=== PATIENT | male | born 1960 | race American Indian/Alaskan Native ===

== ENCOUNTER 2018-05-18 03:08 | Observation (INO) | payer MEDICAID, OTHER ==
[2018-05-18 03:08] VITALS: BMI 29.1
[2018-05-18] MEDS ORDERED: Albuterol-Ipratrop 3 mg / 0.5 (3 ml) UD IH STA (03:21)
[2018-05-18] MEDS ORDERED: Nitroglycerin 2% Ointment Foilpak UD TOP STA (03:21)
--- NOTE | 2018-05-18 03:30 | ED PDOC ---
Arrival/HPI - General Chief Complaint: Chest Pain Time Seen by Provider: 05/18/18 03:11 Historian: Patient - History of Present Illness Narrative History of Present Illness (Text): 05/18/18 03:25 58 year old male, whose past medical history includes CAD with stents, hypertension, and hyperlipidemia, presents to the emergency department by EMS for evaluation of chest discomfort. Patient states it feels like chest pressure. Patient also informs of some associated shortness of breath. Patient states symptoms are similar to those from previous heart problems. Patient informs he is noncompliant with his medication because he can't afford them. Patient was administered aspirin and NTG spray by EMS prior to arrival, with relief. Patient is a smoker. Patient denies any fevers, chills, headache, dizziness, abdominal pain, nausea, vomiting, diarrhea, back pain, neck pain, or any other complaint. Time/Duration: Prior to Arrival Symptom Onset: Sudden Symptom Course: Improving Quality: Pressure Activities at Onset: Light Context: Home Past Medical History - Provider Review Nursing Documentation Reviewed: Yes - Infectious Disease Hx of Infectious Diseases: None - Tetanus Immunization Tetanus Immunization: Unknown - Cardiac Hx Cardiac Disorders: Yes - Musculoskeletal/Rheumatological Hx Falls: No - Psychiatric Hx Psychophysiologic Disorder: No (MARIJUANA EVERY WEEK,ETOH SOCIALLY) Hx Substance Use: No - Surgical History Hx Coronary Stent: Yes () - Suicidal Assessment Feels Threatened In Home Enviroment: No Family/Social History - Physician Review Nursing Documentation Reviewed: Yes Family/Social History: No Known Family HX Smoking Status: Current Some Days Smoker Hx Alcohol Use: No Hx Substance Use: No Allergies/Home Meds Allergies/Adverse Reactions: Allergies No Known Allergies Allergy (Verified 05/18/18 03:14) Home Medications: Home Meds Medication Instructions Recorded Confirmed Aspirin 325 mg PO DAILY 11/30/13 11/30/13 Atorvastatin [Lipitor] 40 mg PO DAILY 11/30/13 11/30/13 Clopidogrel [Plavix] 75 mg PO DAILY 11/30/13 11/30/13 Enalapril Maleate [Enalapril] 10 mg PO DAILY 11/30/13 11/30/13 Metoprolol Succinate 25 mg PO DAILY 11/30/13 11/30/13 Review of Systems - Physician Review All systems were reviewed & negative as marked: Yes - Review of Systems Constitutional: absent: Fevers, Night Sweats Respiratory: SOB Cardiovascular: Chest Pain Gastrointestinal: absent: Abdominal Pain, Diarrhea, Nausea, Vomiting Musculoskeletal: absent: Back Pain, Neck Pain Neurological: absent: Headache, Dizziness Physical Exam Vital Signs Reviewed: Yes Vital Signs Temp Pulse Resp BP Pulse Ox 05/18/18 03:14 99.6 F 71 18 141/99 H 90 L Temperature: Afebrile Blood Pressure: Hypertensive Pulse: Regular Respiratory Rate: Normal Appearance: Positive for: Well-Appearing, Non-Toxic, Comfortable Pain Distress: None Mental Status: Positive for: Alert and Oriented X 3 Finger Stick Blood Glucose: 84 - Systems Exam Head: Present: Atraumatic, Normocephalic Pupils: Present: PERRL Extroacular Muscles: Present: EOMI Conjunctiva: Present: Normal Mouth: Present: Moist Mucous Membranes Neck: Present: Normal Range of Motion Respiratory/Chest: Present: Good Air Exchange, Rhonchi. No: Respiratory Distress, Accessory Muscle Use Cardiovascular: Present: Regular Rate and Rhythm, Normal S1, S2. No: Murmurs Abdomen: No: Tenderness, Distention, Peritoneal Signs Back: Present: Normal Inspection Upper Extremity: Present: Normal Inspection. No: Cyanosis, Edema Lower Extremity: Present: Normal Inspection. No: Edema Neurological: Present: GCS=15, CN II-XII Intact, Speech Normal Skin: Present: Warm, Dry, Normal Color. No: Rashes Psychiatric: Present: Alert, Oriented x 3, Normal Insight, Normal Concentration Medical Decision Making ED Course and Treatment: 05/18/18 03:32 Impression: 58 year old male presents with chest pain. Plan: -- EKG -- Cardiac Iso, CMP -- CBC, Platelets -- Chest X-ray -- Duoneb -- NTG 2% -- Reassess and disposition Prior Visits: Notes and results from previous visits were reviewed. Progress Notes: EKG reviewed by me, shows: Normal sinus rhythm @ 74bpm Frequent PVCs, LVH, Nonspecific T wave changes 05/18/18 04:48 Case discussed with medical writer and house physician Dr Alston, who accepts to the hospitalist service. - RAD Interpretation Radiology Orders: 05/18/18 03:17 CHEST PORTABLE [RAD] Stat - Medication Orders Current Medication Orders: Discontinued Medications Albuterol/Ipratropium (Duoneb 3 Mg/0.5 Mg (3 Ml) Ud) 3 ml IH ONCE STA Stop: 05/18/18 03:22 Nitroglycerin (Nitro-Bid 2% Oint) 1 ea TOP ONCE STA Stop: 05/18/18 03:22 - Scribe Statement The provider has reviewed the documentation as recorded by the Leonardibbelinda Moody Provider Scribe Attestation: All medical record entries made by the Scribe were at my direction and personally dictated by me. I have reviewed the chart and agree that the record accurately reflects my personal performance of the history, physical exam, medical decision making, and the department course for this patient. I have also personally directed, reviewed, and agree with the discharge instructions and disposition. Disposition/Present on Arrival - Present on Arrival Any Indicators Present on Arrival: No History of DVT/PE: No History of Uncontrolled Diabetes: No Urinary Catheter: No History of Decub. Ulcer: No History Surgical Site Infection Following: None - Disposition Have Diagnosis and Disposition been Completed?: Yes Diagnosis: Chest pain, CHF (congestive heart failure) Disposition: HOSPITALIZED Disposition Time: 04:40 Patient Plan: Admission Patient Problems: Current Active Problems Problem Status Onset CHF (congestive heart failure) Acute Chest pain Acute Condition: STABLE
[2018-05-18 03:37] LABS: MEAN CORPUSCULAR HGB CONC 34.5 g/dl (31.0-37.0); MEAN PLATELET VOLUME 11.3 fl (7.0-11.0); RBC 4.51 10^6/uL (3.5-6.1); RED CELL DISTRIBUTION WIDTH 14.4 % (11.5-14.5); WHITE BLOOD COUNT 5.4 10^3/uL (4.5-11.0)
[2018-05-18 03:39] LABS: ALB/GLOB RATIO 1.1 (1.1-1.8); ALBUMIN 3.7 g/dL (3.0-4.8); ALT/SGPT 100 U/L (7-56); AST/SGOT 111 U/L (17-59); BLOOD UREA NITROGEN 19 mg/dL (7-21); CALCIUM 8.9 mg/dL (8.4-10.5); GFR NON-AFRICAN AMERICAN > 60; INR 1.12; PARTIAL THROMBOPLASTIN TIME 35.3 Seconds (26.9-38.3); PROTHROMBIN TIME 12.4 SECONDS (9.4-12.5)
[2018-05-18 04:08] LABS: TROPONIN I 0.02 ng/mL
[2018-05-18 05:23] VITALS: O2SAT 97
--- NOTE | 2018-05-18 05:37 | CP.PCM.HP ---
<Baljeet Colindrese - Last Filed: 05/18/18 06:47> History of Present Illness - History of Present Illness History of Present Illness: Dr Colindres Hospitalist Service 58 M with pmhx of HTN HLD CAD (4 stents), presents to the ED with a 5hr hx of non-radiating chest pain and shortness of breath. Pt says at midnight he awoke from severe substernal chest pain and was unable to tolerate lying flat. His pain was relieved by sitting up and walking around. Pt called an ambulance because the pain did not go away. Pt says this pain feels similar in nature to his last episode. Pt reports he has not been able to follow up with Dr Bhakta or get his prescribed medications for the past two years because of insurance issues. ROS Pos: Chest Pain, Shortness of Breath, Orthopnea, medication and follow up non-compliance, headache Neg: Pains radiating to back/shoulder/jaw/abd, fevers, chills, vision/hearing changes PMH: hypertension, dyslipidemia, CAD s/p 4 stent placement in 04/2012 in [facility] Allergy: Nkda Meds: aspirin 325 mg, plavix 75 mg, enalalpril 5 mg, metoprolol 25 mg and lipitor 40 mg daily Hospitalization: 2013 r/o [facility] Family History: Mother at age 59 due to heart attack. Social History: smokes 3-4 cig/day, former cocaine user, drinks alcohol socially, marijuana occasionally. Lives with his girlfriend. Present on Admission - Present on Admission Any Indicators Present on Admission: No Review of Systems - Constitutional Constitutional: Headache. absent: Chills, Fatigue, Fever, Weight Gain, Weight Loss - EENT Eyes: absent: Change in Vision Ears: absent: Dizziness Nose/Mouth/Throat: absent: Facial Pain, Neck Pain - Cardiovascular Cardiovascular: Chest Pain, Orthopnea. absent: Diaphoresis, Edema, Pain Radiating to Arm/Neck/Jaw, Palpitations, Pedal Edema, Syncope - Respiratory Respiratory: Chest Congestion. absent: Cough - Gastrointestinal Gastrointestinal: absent: Abdominal Pain, Nausea, Vomiting - Musculoskeletal Musculoskeletal: absent: Back Pain, Myalgias, Neck Pain, Numbness, Radiating Pain into Limb - Integumentary Integumentary: absent: Jaundice - Neurological Neurological: absent: Numbness, Headaches, Syncope, Weakness - Psychiatric Psychiatric: absent: Anxiety, Depression Past Patient History - Infectious Disease Hx of Infectious Diseases: None - Tetanus Immunizations Tetanus Immunization: Unknown - Past Social History Smoking Status: Current Some Days Smoker - CARDIAC Hx Cardiac Disorders: Yes - MUSCULOSKELETAL/RHEUMATOLOGICAL Hx Falls: No - PSYCHIATRIC Hx Psychophysiologic Disorder: No (MARIJUANA EVERY WEEK,ETOH SOCIALLY) Hx Substance Use: No - SURGICAL HISTORY Hx Coronary Stent: Yes (-2012) Meds Allergies/Adverse Reactions: Allergies Allergy/AdvReac Type Severity Reaction Status Date / Time No Known Allergies Allergy Verified 05/18/18 03:14 Physical Exam - Constitutional Appears: Non-toxic, No Acute Distress - Head Exam Head Exam: ATRAUMATIC, NORMAL INSPECTION - Eye Exam Eye Exam: EOMI, Normal appearance. absent: Scleral icterus Pupil Exam: NORMAL ACCOMODATION, PERRL - ENT Exam ENT Exam: Mucous Membranes Moist, Normal Exam - Neck Exam Neck exam: Negative for: Lymphadenopathy, Tenderness, Thyromegaly - Respiratory Exam Respiratory Exam: Chest Wall Tenderness (sternal borders, anterior costal junctions T3-7 bilaterally), Rales (bilateral lower garzon- mild). absent: Rhonchi, Wheezes - Cardiovascular Exam Cardiovascular Exam: RRR, +S1, +S2. absent: Diastolic murmur, Systolic Murmur - GI/Abdominal Exam GI & Abdominal Exam: Normal Bowel Sounds, Soft, Tenderness (mild epigastric tenderness reproduced with deep palpation) - Extremities Exam Extremities exam: Positive for: pedal pulses present. Negative for: pedal edema - Neurological Exam Neurological exam: Alert, CN II-XII Intact, Oriented x3 - Psychiatric Exam Psychiatric exam: Normal Affect, Normal Mood - Skin Skin Exam: Dry, Normal Color, Warm Results - Vital Signs Recent Vital Signs: Last Vital Signs Temp 99.6 F 05/18/18 03:14 Pulse 74 05/18/18 05:22 Resp 17 05/18/18 05:22 BP 142/89 05/18/18 05:22 Pulse Ox 97 05/18/18 05:22 - Labs Result Diagrams: 05/18/18 03:14 05/18/18 03:14 Labs: Laboratory Results - last 24 hr 05/18/18 05/18/18 05/18/18 03:14 03:14 03:14 WBC 5.4 RBC 4.51 Hgb 14.0 Hct 40.6 L MCV 90.0 MCH 31.0 MCHC 34.5 RDW 14.4 Plt Count 154 MPV 11.3 H PT 12.4 INR 1.12 APTT 35.3 Sodium 139 Potassium 4.4 Chloride 107 Carbon Dioxide 26 Anion Gap 11 BUN 19 Creatinine 0.8 Est GFR ( Amer) > 60 Est GFR (Non-Af Amer) > 60 Random Glucose 97 Calcium 8.9 Total Bilirubin 0.5 AST 111 H ALT 100 H Alkaline Phosphatase 112 Lactate Dehydrogenase 708 H Total Creatine Kinase 137 Troponin I 0.02 D NT-Pro-B Natriuret Pep Total Protein 7.0 Albumin 3.7 Globulin 3.3 Albumin/Globulin Ratio 1.1 05/18/18 03:14 WBC RBC Hgb Hct MCV MCH MCHC RDW Plt Count MPV PT INR APTT Sodium Potassium Chloride Carbon Dioxide Anion Gap BUN Creatinine Est GFR ( Amer) Est GFR (Non-Af Amer) Random Glucose Calcium Total Bilirubin AST ALT Alkaline Phosphatase Lactate Dehydrogenase Total Creatine Kinase Troponin I NT-Pro-B Natriuret Pep 2520 H Total Protein Albumin Globulin Albumin/Globulin Ratio Assessment & Plan - Assessment and Plan (Free Text) Assessment: 58M hx HTN HLD 4 stents, admitted for chest pain, orthopnea Plan: Chest Pain - Pt non compliant with meds, restarting past home regimen - give ASA 325mg daily - give Lipitor 40mg po daily - give Plavix 75mg daily - give Metoprolol po daily - give Lasix 20 IVP - nitro, duonebs, lasix 40 given in ED - Trops Neg x1 f/u @9am, 3pm - f/u Echo - Dr Moore, Cardio consulted HTN - continue with home Rx - monitor vitals - f/u Cardio Recs CAD - ASA, Plavix - f/u Dr Adhikari Recs Polysubstance Abuse - f/u UDS PPx - ASA 325 daily - SCDs <Shelley De León R - Last Filed: 05/18/18 16:59> Results - Vital Signs Recent Vital Signs: Last Vital Signs Temp 98.1 F 05/18/18 12:00 Pulse 69 05/18/18 14:40 Resp 18 05/18/18 12:00 BP 160/92 H 05/18/18 14:40 Pulse Ox 97 05/18/18 05:22 - Labs Result Diagrams: 05/18/18 03:14 05/18/18 03:14 Labs: Laboratory Results - last 24 hr 05/18/18 05/18/18 05/18/18 03:14 03:14 03:14 WBC 5.4 RBC 4.51 Hgb 14.0 Hct 40.6 L MCV 90.0 MCH 31.0 MCHC 34.5 RDW 14.4 Plt Count 154 MPV 11.3 H PT 12.4 INR 1.12 APTT 35.3 Sodium 139 Potassium 4.4 Chloride 107 Carbon Dioxide 26 Anion Gap 11 BUN 19 Creatinine 0.8 Est GFR ( Amer) > 60 Est GFR (Non-Af Amer) > 60 Random Glucose 97 Calcium 8.9 Total Bilirubin 0.5 AST 111 H ALT 100 H Alkaline Phosphatase 112 Lactate Dehydrogenase 708 H Total Creatine Kinase 137 Troponin I 0.02 D NT-Pro-B Natriuret Pep Total Protein 7.0 Albumin 3.7 Globulin 3.3 Albumin/Globulin Ratio 1.1 Hepatitis A IgM Ab Hep Bs Antigen Hep B Core IgM Ab Hepatitis C Antibody 05/18/18 05/18/18 05/18/18 03:14 08:45 08:45 WBC RBC Hgb Hct MCV MCH MCHC RDW Plt Count MPV PT INR APTT Sodium Potassium Chloride Carbon Dioxide Anion Gap BUN Creatinine Est GFR ( Amer) Est GFR (Non-Af Amer) Random Glucose Calcium Total Bilirubin AST ALT Alkaline Phosphatase Lactate Dehydrogenase Total Creatine Kinase Troponin I 0.03 D NT-Pro-B Natriuret Pep 2520 H Total Protein Albumin Globulin Albumin/Globulin Ratio Hepatitis A IgM Ab Negative Hep Bs Antigen Negative Hep B Core IgM Ab Negative Hepatitis C Antibody Negative 05/18/18 15:30 WBC RBC Hgb Hct MCV MCH MCHC RDW Plt Count MPV PT INR APTT Sodium Potassium Chloride Carbon Dioxide Anion Gap BUN Creatinine Est GFR ( Amer) Est GFR (Non-Af Amer) Random Glucose Calcium Total Bilirubin AST ALT Alkaline Phosphatase Lactate Dehydrogenase Total Creatine Kinase Troponin I 0.02 D NT-Pro-B Natriuret Pep Total Protein Albumin Globulin Albumin/Globulin Ratio Hepatitis A IgM Ab Hep Bs Antigen Hep B Core IgM Ab Hepatitis C Antibody Attending/Attestation - Attestation I have personally seen and examined this patient.: Yes I have fully participated in the care of the patient.: Yes I have reviewed all pertinent clinical information: Yes Notes (Text): Patient seen and examined by me with resident at approximately 8AM on 05/18/18. Case including HPI, physical exam, and assessment and plan discussed with resident. Agree with above with following additions/corrections. Patient is a 58-year-old male with past medical history significant for hypertension, hyperlipidemia, coronary artery disease status post stent pl acement, tobacco abuse, alcohol abuse, and medication noncompliance that presented to the emergency room with chest pain and shortness of breath. Patient states that the pain started approximately at 12 AM last night. He states it woke him up from his sleep. He states he was also feeling short of breath. He was unable to lie flat. He states when he sat up and walked around he felt a little better. However, the chest pain continued. He says the pain is in the center of his chest and does not radiate. Pain is constant and feels like a "pressure." Patient states that when he received nitroglycerin the pain seemed to improve. Patient states that he has had no difficulty sleeping on 2 pillows until last night. Patient states he also drinks alcohol and drinks a "tall can of beer" daily. Last drink was yesterday. Patient denies any history of withdrawal symptoms. Patient denies any palpitations. No fevers or chills. No nausea, vomiting, or abdominal pain. No dysuria. No headaches or dizziness. No diarrhea or constipation. Patient states that he has not taken any medications at home for approximately 2 years secondary to not having any health insurance. 12 point review of systems reviewed by me. Please see above HPI, all other systems negative. Physical exam: General: Awake and alert lying in bed in no acute distress. HEENT: Normocephalic, atraumatic. Extraocular muscles intact, pupils equal and reactive, no scleral icterus. Oropharynx is pink and moist. No pharyngeal erythema or exudate appreciated. Neck is supple. Hearing grossly intact. Ears and nose externally unremarkable. Cardiovascular: Normal rhythm. Normal S1 and S2. No murmurs, rubs, or gallops appreciated Pulmonary: Normal respiratory effort. No rhonchi, rales, or wheezing appreciated. Gastrointestinal: Soft, nondistended. Nontender. Positive bowel sounds all 4 quadrants. No guarding. Musculoskeletal: Moves all extremities. No calf tenderness. No edema appreciated. Positive anterior breast bone chest wall tenderness. Central nervous system: AAOx3. CN 2-12 grossly intact. 5/5 muscle strength all extremities. Dermatologic: Skin warm and dry. Assessment and plan: Patient is a 58-year-old male with past medical history significant for hypertension, hyperlipidemia, coronary artery disease status post stent placement, tobacco abuse, alcohol abuse, and medication noncompliance that presented to the emergency room with chest pain and shortness of breath. 1. Atypical chest pain. Pain reproducible. Troponin 0.02, then 0.03. BNP elevated at 2520. Pending lipid panel. Cardiology consulted. Follow up recommend ations. Continue ASA, Plavix, Metoprolol. Monitor on telemetry. 2. Acute systolic CHF. BNP elevated at 2520. 2D echo per fruit receiver showed left ventricle is normal size, mild left ventricular hypertrophy, systolic function is moderately impaired with an ejection fraction of 30-35%, significant multiple regional wall motion abnormalities noted consistent with coronary artery disease, trivial aortic regurgitation, mitral regurgitation is mild, IVC is dilated, no pericardial effusion, no thrombus or vegetation noted. 3. CAD s/p stents. Patient has been off his medications for 2 years. Placed on aspirin and Plavix. Placed on metoprolol and lisinopril. Cardiology consulted, follow-up recommendations. 4. Transaminits. Likely secondary to alcohol abuse. Follow up repeat labs in AM. Hepatitis panel negative. 5. Hypertension. Started on metoprolol, lisinopril, and Norvasc. 6. Hyperlipidemia. Lipitor held for now secondary to transaminitis. Follow up lipid panel. 7. Alcohol abuse. Patient counseled at length on cessation. Placed on thiamine, folic acid, and multivitamin. 8. Tobacco abuse. Patient counseled at length on cessation. 9. History of cocaine abuse. Pending UDS. Case discussed in detail with the patient regarding current diagnosis and treatment plan. All questions answered.
--- NOTE | 2018-05-18 08:01 | RAD ---
Date of service: 05/18/2018 HISTORY: chest pain COMPARISON: 11/30/2013 TECHNIQUE: 1 view obtained. FINDINGS: LUNGS: Peribronchial thickening consistent with bronchitis. No evidence of pneumonia PLEURA: No significant pleural effusion identified, no pneumothorax apparent. CARDIOVASCULAR: No aortic atherosclerotic calcification present. Normal cardiac size. No pulmonary vascular congestion. OSSEOUS STRUCTURES: No significant abnormalities. VISUALIZED UPPER ABDOMEN: Normal. OTHER FINDINGS: None. IMPRESSION: Peribronchial thickening consistent with bronchitis. No evidence of pneumonia
--- NOTE | 2018-05-18 08:26 | CARD ---
APPROVED REPORT Date of service: 05/18/2018 EXAM: Two-dimensional and M-mode echocardiogram with Doppler and color Doppler. INDICATION Chest Pain Congestive Heart Failure 2D DIMENSIONS Left Atrium (2D)3.8 (1.6-4.0cm)IVSd1.3 (0.7-1.1cm) LVDd5.4 (3.9-5.9cm)PWd1.0 (0.7-1.1cm) LVDs4.5 (2.5-4.0cm)FS (%) 16.6 % LVEF (%)34.6 (>50%) M-Mode DIMENSIONS Aortic Root3.00 (2.2-3.7cm)Aortic Cusp Exc.2.00 (1.5-2.0cm) Aortic Valve AoV Peak [id number]/Denys Peak GR.5mmHg Mitral Valve E/A ratio0.0 TDI E/Lateral E'0.0E/Medial E'0.0 Tricuspid Valve TR Peak [id number] [id number] Peak Gr.13mmHg [id number] LEFT VENTRICLE The left ventricle is normal size. There is mild left ventricular hypertrophy. ( asymmetric septal hypertrophy)/ The systolic function is moderately impaired.EF-30-35% Significant Multiple regional wall motion abnormalities noted, C/w CAD There is moderate in the apical anterior wall. There is moderate hypokinesis in the mid-inferolateral wall. Transmitral Doppler flow pattern is Grade II-pseudonormal filling dynamics. No left ventricle thrombus noted on this study. There is no ventricular septal defect visualized. There is no left ventricular aneurysm. There is no mass noted in the left ventricle. RIGHT VENTRICLE The right ventricle is normal size. There is normal right ventricular wall thickness. The right ventricular systolic function is normal. ATRIA The left atrium size is normal. The right atrium size is normal. The interatrial septum is intact with no evidence for an atrial septal defect. AORTIC VALVE The aortic valve is thickened but opens well. There is trivial aortic regurgitation. There is no aortic valvular stenosis. There is no aortic valvular vegetation. MITRAL VALVE The mitral valve is thickened but opens well. Mitral regurgitation is mild. There is no mitral valve stenosis. There is no evidence of mitral valve prolapse. TRICUSPID VALVE The tricuspid valve leaflets are thickened , but open well. There is mild tricuspid regurgitation.RVSP-23 mmof hg. There is no tricuspid valve stenosis. There is no tricuspid valve prolapse or vegetation. PULMONIC VALVE The pulmonary valve is normal in structure. Trivial PI There is no pulmonic valvular stenosis. GREAT VESSELS The aortic root is normal in size. The ascending aorta is normal in size. The pulmonary artery is normal. The IVC is dilated. PERICARDIAL EFFUSION There is no pleural effusion. There is no pericardial effusion. <Conclusion> The left ventricle is normal size. There is mild left ventricular hypertrophy. ( asymmetric septal hypertrophy)/ The systolic function is moderately impaired.EF-30-35% Significant Multiple regional wall motion abnormalities noted, C/w CAD There is trivial aortic regurgitation. Mitral regurgitation is mild. There is mild tricuspid regurgitation.RVSP-23 mmof hg. The IVC is dilated. There is no pericardial effusion. No thrombus or vegetation noted.
[2018-05-18] MEDS: Metoprolol Succinate 25 mg XL Tab PO SCH (10:00)
--- NOTE | 2018-05-18 12:29 | CARD ---
APPROVED REPORT Date of service: 05/18/2018 EKG Measurement Heart [id number] <Conclusion> Sinus rhythm with frequent premature ventricular complexes Possible Left atrial enlargement Left ventricular hypertrophy Nonspecific T wave abnormality Abnormal ECG
[2018-05-18 12:57] LABS: HEPATITIS B SURFACE AG Negative (NEGATIVE)
[2018-05-18 13:03] LABS: HEPATITIS A IGM NEGATIVE (NEGATIVE); HEPATITIS B CORE AB NEGATIVE (NEGATIVE)
[2018-05-18 13:14] LABS: HEPATITIS C ANTIBODY NEGATIVE (NEGATIVE)
[2018-05-18] MEDS: Multivitamin With Minerals Tab PO SCH (14:39)
[2018-05-18 19:07] LABS: BARBITURATES, UR NEGATIVE (NEGATIVE); BENZODIAZEPINES, UR NEGATIVE (NEGATIVE); OPIATES, UR POSITIVE (NEGATIVE); PHENCYCLIDINE, UR NEGATIVE (NEGATIVE)
--- NOTE | 2018-05-18 19:33 | CON ---
DATE: 05/18/2018 CARDIOLOGY CONSULT REASON FOR CONSULTATION: Chest pain. HISTORY OF PRESENT ILLNESS: The patient is a 58-year-old male who has a history of coronary artery disease, underwent 4 stents in 2012 at [facility] by custom leather products maker, Dr. Guerrero. The patient has not had any followup and does not take medications, because he lost his insurance. The patient presents because of retrosternal chest pain as well as shortness of breath. SOCIAL HISTORY: The patient is a smoker, drinker. 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 The patient denies any drug abuse. REVIEW OF SYSTEMS: No nausea or vomiting. No fever or chills. PHYSICAL EXAMINATION GENERAL: The patient is a middle-aged male who does not appear to be in acute distress. VITAL SIGNS: Blood pressure 152/93, heart rate 70, temperature 99.6, respirations 18. HEENT: Normocephalic. CHEST: Clear. HEART: S1 and S2 regular. EXTREMITIES: No edema. LABORATORY DATA: Today's SMA-7 is within normal limits. ProBNP is 2520. Troponins 0.02 and 0.03. PT, PTT, and INR are within normal limits. Hemoglobin and hematocrit 14 and 40.6. White count and platelet count are within normal limits. Chest x-ray was unremarkable except for prominent bronchovascular markings. EKG reveals sinus rhythm with frequent PVCs, normal specific Q-wave abnormality. Echocardiographic study was consistent with ischemic cardiomyopathy, ejection fraction in the range of 30% to 35%. ASSESSMENT 1. Chest pain with troponin in indeterminate range. 2. Ischemic cardiomyopathy. 3. History of cocaine abuse in the past. The patient tested positive for cocaine, opiate and cannabinoids in 2013. RECOMMENDATIONS: Continue aspirin 325 mg once daily, 620 mg once a day; Toprol-XL 25 mg once a day; Plavix 75 mg once a day; Lipitor 40 mg once a day; Zestril 20 mg once a day. Obtain urine for drug screen and social service to help the patient with his medication needs as well as outpatient followup. Cordell Adhikari MD [facility] # [id number]
[2018-05-19 03:43] VITALS: RESP 20
[2018-05-19] MEDS ORDERED: Metoprolol 1 mg/ml Inj IVP ONE (04:53)
[2018-05-19 06:23] LABS: BASO # 0.03 K/mm3 (0.0-2.0); BASO % 0.8 % (0.0-3.0); EOS # 0.1 (0.0-0.7); EOS % 2.3 % (1.5-5.0); LYMPH # 1.3 (1.2-3.4); LYMPH % 32.7 % (22.0-35.0); MEAN CELL VOLUME 88.7 fl (80.0-105.0); MEAN CORPUSCULAR HEMOGLOBIN 30.9 pg (25.0-35.0); MEAN CORPUSCULAR HGB CONC 34.8 g/dl (31.0-37.0); MEAN PLATELET VOLUME 11.8 fl (7.0-11.0); MONO # 0.5 (0.1-0.6); MONO % 12.7 % (1.0-6.0); RBC 5.38 10^6/uL (3.5-6.1); RED CELL DISTRIBUTION WIDTH 14.1 % (11.5-14.5)
[2018-05-19 06:35] LABS: HEMOGLOBIN 16.6 g/dL (14.0-18.0)
[2018-05-19 07:05] LABS: ALBUMIN 4.1 g/dL (3.0-4.8); ALT/SGPT 72 U/L (7-56); AST/SGOT 48 U/L (17-59); BLOOD UREA NITROGEN 14 mg/dL (7-21); CALCIUM 9.7 mg/dL (8.4-10.5); GFR NON-AFRICAN AMERICAN > 60; HDL CHOLESTEROL 50 mg/dL (29-60)
[2018-05-19 07:11] LABS: LDL CHOLESTEROL 127 mg/dL (0-129)
[2018-05-19] MEDS ORDERED: Potassium Chloride 20 mEq ER Tab PO ONE (08:04)
[2018-05-19] MEDS: Multivitamin With Minerals Tab PO SCH (08:47)
[2018-05-19] MEDS: Metoprolol Succinate 25 mg XL Tab PO SCH (09:17)
[2018-05-19] MEDS ORDERED: Potassium Chloride 20 mEq ER Tab PO SCH (11:15)
[2018-05-19 12:32] VITALS: BP 150/88; PULSE 68; TEMP 98.4
--- NOTE | 2018-05-19 14:59 | CP.PCM.DIS ---
<Ayleen Toussaint - Last Filed: 05/19/18 14:56> Provider - Provider Date of Admission: 05/18/18 04:41 Attending physician: Keli White MD Primary care physician: NO PRIMARY CARE PROVIDER Consults: 05/18/18 05:57 Cardiology Consult Routine Comment: Consulting Provider: Cordell Adhikari Consulting Physician: Cordell Adhikari Reason for Consult: Chest Pain, orthopnea, med non compliance 05/18/18 10:35 Phlebotomist Associate [Case Management Referral] Routine Comment: Physician Instructions: Reason For Exam: assist with meds Reason for Referral: Phlebotomist Associate Eval Time Spent in preparation of Discharge (in minutes): 35 Hospital Course - Lab Results Lab Results: Most Recent Lab Values WBC 4.0 10^3/uL (4.5-11.0) L D 05/19/18 05:30 RBC 5.38 10^6/uL (3.5-6.1) 05/19/18 05:30 Hgb 16.6 g/dL (14.0-18.0) D 05/19/18 05:30 Hct 47.7 % (42.0-52.0) 05/19/18 05:30 MCV 88.7 fl (80.0-105.0) 05/19/18 05:30 MCH 30.9 pg (25.0-35.0) 05/19/18 05:30 MCHC 34.8 g/dl (31.0-37.0) 05/19/18 05:30 RDW 14.1 % (11.5-14.5) 05/19/18 05:30 Plt Count 186 10^3/uL (120.0-450.0) 05/19/18 05:30 MPV 11.8 fl (7.0-11.0) H 05/19/18 05:30 Neut % (Auto) 51.5 % (50.0-68.0) 05/19/18 05:30 Lymph % (Auto) 32.7 % (22.0-35.0) 05/19/18 05:30 Gem % (Auto) 12.7 % (1.0-6.0) H 05/19/18 05:30 Eos % (Auto) 2.3 % (1.5-5.0) 05/19/18 05:30 Baso % (Auto) 0.8 % (0.0-3.0) 05/19/18 05:30 Lymph # (Auto) 1.3 (1.2-3.4) 05/19/18 05:30 Gem # (Auto) 0.5 (0.1-0.6) 05/19/18 05:30 Eos # (Auto) 0.1 (0.0-0.7) 05/19/18 05:30 Baso # (Auto) 0.03 K/mm3 (0.0-2.0) 05/19/18 05:30 Absolute Neuts (auto) 2.04 (1.4-6.5) 05/19/18 05:30 PT 12.4 SECONDS (9.4-12.5) 05/18/18 03:14 INR 1.12 05/18/18 03:14 APTT 35.3 Seconds (26.9-38.3) 05/18/18 03:14 Sodium 140 mmol/L (132-148) 05/19/18 05:30 Potassium 3.4 mmol/L (3.6-5.0) L 05/19/18 05:30 Chloride 104 mmol/L (98-107) 05/19/18 05:30 Carbon Dioxide 28 mmol/L (21-33) 05/19/18 05:30 Anion Gap 11 (10-20) 05/19/18 05:30 BUN 14 mg/dL (7-21) 05/19/18 05:30 Creatinine 0.7 mg/dl (0.8-1.5) L 05/19/18 05:30 Est GFR ( Amer) > 60 05/19/18 05:30 Est GFR (Non-Af Amer) > 60 05/19/18 05:30 Random Glucose 118 mg/dL (70-110) H 05/19/18 05:30 Calcium 9.7 mg/dL (8.4-10.5) 05/19/18 05:30 Phosphorus 3.4 mg/dL (2.5-4.5) 05/19/18 05:30 Magnesium 2.1 mg/dL (1.7-2.2) 05/19/18 05:30 Total Bilirubin 1.0 mg/dL (0.2-1.3) 05/19/18 05:30 AST 48 U/L (17-59) 05/19/18 05:30 ALT 72 U/L (7-56) H 05/19/18 05:30 Alkaline Phosphatase 118 U/L (38-126) 05/19/18 05:30 Lactate Dehydrogenase 708 U/L (333-699) H 05/18/18 03:14 Total Creatine Kinase 137 U/L (35-230) 05/18/18 03:14 Troponin I 0.02 ng/mL D 05/18/18 15:30 NT-Pro-B Natriuret Pep 2520 pg/mL (0-450) H 05/18/18 03:14 Total Protein 8.0 g/dL (5.8-8.3) 05/19/18 05:30 Albumin 4.1 g/dL (3.0-4.8) 05/19/18 05:30 Globulin 3.9 gm/dL 05/19/18 05:30 Albumin/Globulin Ratio 1.0 (1.1-1.8) L 05/19/18 05:30 Triglycerides 66 mg/dL (35-160) 05/19/18 05:30 Cholesterol 214 mg/dL (130-200) H 05/19/18 05:30 LDL Cholesterol Direct 127 mg/dL (0-129) 05/19/18 05:30 HDL Cholesterol 50 mg/dL (29-60) 05/19/18 05:30 Urine Opiates Screen Positive (NEGATIVE) H 05/18/18 18:40 Urine Methadone Screen Negative (NEGATIVE) 05/18/18 18:40 Ur Barbiturates Screen Negative (NEGATIVE) 05/18/18 18:40 Ur Phencyclidine Scrn Negative (NEGATIVE) 05/18/18 18:40 Ur Amphetamines Screen Negative (NEGATIVE) 05/18/18 18:40 U Benzodiazepines Scrn Negative (NEGATIVE) 05/18/18 18:40 U Oth Cocaine Metabols Negative (NEGATIVE) 05/18/18 18:40 U Cannabinoids Screen Positive (NEGATIVE) H 05/18/18 18:40 Hepatitis A IgM Ab Negative (NEGATIVE) 05/18/18 08:45 Hep Bs Antigen Negative (NEGATIVE) 05/18/18 08:45 Hep B Core IgM Ab Negative (NEGATIVE) 05/18/18 08:45 Hepatitis C Antibody Negative (NEGATIVE) 05/18/18 08:45 HIV 1&2 Ag/Ab, 4th Gen Nonreactive (Nonreactive) 05/18/18 08:45 Physical Exam - Constitutional Appears: Non-toxic, No Acute Distress - Head Exam Head Exam: ATRAUMATIC, NORMAL INSPECTION - Eye Exam Eye Exam: EOMI, Normal appearance. absent: Scleral icterus Pupil Exam: NORMAL ACCOMODATION, PERRL - ENT Exam ENT Exam: Mucous Membranes Moist, Normal Exam - Neck Exam Neck exam: Negative for: Lymphadenopathy, Tenderness, Thyromegaly - Respiratory Exam Respiratory Exam: Chest Wall Tenderness (sternal borders, anterior costal junctions T3-7 bilaterally), Rales (bilateral lower garzon- mild). absent: Rhonchi, Wheezes - Cardiovascular Exam Cardiovascular Exam: RRR, +S1, +S2. absent: Diastolic murmur, Systolic Murmur - GI/Abdominal Exam GI & Abdominal Exam: Normal Bowel Sounds, Soft, Tenderness (mild epigastric tenderness reproduced with deep palpation) - Extremities Exam Extremities exam: Positive for: pedal pulses present. Negative for: pedal edema - Neurological Exam Neurological exam: Alert, CN II-XII Intact, Oriented x3 - Psychiatric Exam Psychiatric exam: Normal Affect, Normal Mood - Skin Skin Exam: Dry, Normal Color, Warm - Hospital Course Hospital Course: Upon admission, 58 M with pmhx of HTN HLD CAD (4 stents), presents to the ED with a 5hr hx of non-radiating chest pain and shortness of breath. Pt says at midnight he awoke from severe substernal chest pain and was unable to tolerate lying flat. His pain was relieved by sitting up and walking around. Pt called an ambulance because the pain did not go away. Pt says this pain feels similar in nature to his last episode. Pt reports he has not been able to follow up with Dr Bhakta or get his prescribed medications for the past two years because of insurance issues. During hospital course, tropoinins were 0.02, 0.03, and 0.02 and EKG was unremarkable. UDS positive for cannabinoids and opiods. Echo showed EF of 3-35% with significant regional wall motion abnormalities and dilated IVC. Patient was started on his previous non compliant medications aspirin, plavix, toprol XL, norvasc, lasix, lisinopril and aldactone. Patient verbalized understanding of hospital course and discharge instructions including importance of follow up with clinic. All questions were answered to satisfaction and patient agreed with discharge today. Discharge Plan - Discharge Medications Prescriptions: amLODIPine [Norvasc] 5 mg PO DAILY #30 tab Aspirin [Aspirin Chewable] 325 mg PO DAILY #30 chew Atorvastatin [Lipitor] 40 mg PO DAILY #30 tab Clopidogrel [Plavix] 75 mg PO DAILY #30 tab Folic Acid 1 mg PO DAILY #30 tab Furosemide [Lasix] 40 mg PO DAILY #10 tablet Lisinopril [Zestril] 20 mg PO DAILY #30 tab Metoprolol Succinate XL [Toprol XL] 25 mg PO DAILY #30 tab Multimineral/Multivitamin [Therapeutic-M Tab] 1 tab PO 0800 #30 tab Spironolactone [Aldactone] 25 mg PO DAILY #10 tablet Thiamine [Vitamin B1 Tab] 100 mg PO DAILY #30 tab - Follow Up Plan Condition: STABLE Disposition: HOME/ ROUTINE Instructions: Heart Healthy Diet, Heart Failure (DC), Chest Pain (DC) Additional Instructions: Please establish primary care physician at [facility] through [facility]. You have an appointment with the clinic on May 28, 2018 at 2pm. Please complete [facility] paperwork before appointment next week and bring all of your discharge paperwork with you. You will need to follow up with [facility] in [place], [place] for cardiology evaluation and repeat echocardiography (heart ultrasound). Instructions will be given to you at the [facility]. As per our discussion, please continue cessation of any substance abuse. You have been provided the following medications: Norvasc 5mg daily Aspirin 325mg daily Lipitor 40mg daily Plavix 75mg daily Lasix 40mg daily Lisinopril 20mg daily Folic Acid 1mg daily Multivitamin daily Thiamine 100mg daily Toprol XL 25mg Aldactone 25mg daily Please get any refills needed for the above medications at [facility] with your primary care doctor. You have been given day 10 days of the Aldactone and Lasix as you will need blood work to check your electrolytes in order to continue those medications. Please return to the ED for any new or worsening symptoms. Referrals: [facility] [Outside] PCP,NO [Primary Care Provider] - <Shelley De León R - Last Filed: 05/20/18 07:38> Provider - Provider Date of Admission: 05/18/18 04:41 Attending physician: Keli White MD Primary care physician: NO PRIMARY CARE PROVIDER Consults: 05/18/18 05:57 Cardiology Consult Routine Comment: Consulting Provider: Cordell Adhikari Consulting Physician: Cordell Adhikari Reason for Consult: Chest Pain, orthopnea, med non compliance 05/18/18 10:35 Phlebotomist Associate [Case Management Referral] Routine Comment: Physician Instructions: Reason For Exam: assist with meds Reason for Referral: Phlebotomist Associate [facility] Course - Lab Results Lab Results: Most Recent Lab Values WBC 4.0 10^3/uL (4.5-11.0) L D 05/19/18 05:30 RBC 5.38 10^6/uL (3.5-6.1) 05/19/18 05:30 Hgb 16.6 g/dL (14.0-18.0) D 05/19/18 05:30 Hct 47.7 % (42.0-52.0) 05/19/18 05:30 MCV 88.7 fl (80.0-105.0) 05/19/18 05:30 MCH 30.9 pg (25.0-35.0) 05/19/18 05:30 MCHC 34.8 g/dl (31.0-37.0) 05/19/18 05:30 RDW 14.1 % (11.5-14.5) 05/19/18 05:30 Plt Count 186 10^3/uL (120.0-450.0) 05/19/18 05:30 MPV 11.8 fl (7.0-11.0) H 05/19/18 05:30 Neut % (Auto) 51.5 % (50.0-68.0) 05/19/18 05:30 Lymph % (Auto) 32.7 % (22.0-35.0) 05/19/18 05:30 Gem % (Auto) 12.7 % (1.0-6.0) H 05/19/18 05:30 Eos % (Auto) 2.3 % (1.5-5.0) 05/19/18 05:30 Baso % (Auto) 0.8 % (0.0-3.0) 05/19/18 05:30 Lymph # (Auto) 1.3 (1.2-3.4) 05/19/18 05:30 Gem # (Auto) 0.5 (0.1-0.6) 05/19/18 05:30 Eos # (Auto) 0.1 (0.0-0.7) 05/19/18 05:30 Baso # (Auto) 0.03 K/mm3 (0.0-2.0) 05/19/18 05:30 Absolute Neuts (auto) 2.04 (1.4-6.5) 05/19/18 05:30 PT 12.4 SECONDS (9.4-12.5) 05/18/18 03:14 INR 1.12 05/18/18 03:14 APTT 35.3 Seconds (26.9-38.3) 05/18/18 03:14 Sodium 140 mmol/L (132-148) 05/19/18 05:30 Potassium 3.4 mmol/L (3.6-5.0) L 05/19/18 05:30 Chloride 104 mmol/L (98-107) 05/19/18 05:30 Carbon Dioxide 28 mmol/L (21-33) 05/19/18 05:30 Anion Gap 11 (10-20) 05/19/18 05:30 BUN 14 mg/dL (7-21) 05/19/18 05:30 Creatinine 0.7 mg/dl (0.8-1.5) L 05/19/18 05:30 Est GFR ( Amer) > 60 05/19/18 05:30 Est GFR (Non-Af Amer) > 60 05/19/18 05:30 Random Glucose 118 mg/dL (70-110) H 05/19/18 05:30 Calcium 9.7 mg/dL (8.4-10.5) 05/19/18 05:30 Phosphorus 3.4 mg/dL (2.5-4.5) 05/19/18 05:30 Magnesium 2.1 mg/dL (1.7-2.2) 05/19/18 05:30 Total Bilirubin 1.0 mg/dL (0.2-1.3) 05/19/18 05:30 AST 48 U/L (17-59) 05/19/18 05:30 ALT 72 U/L (7-56) H 05/19/18 05:30 Alkaline Phosphatase 118 U/L (38-126) 05/19/18 05:30 Lactate Dehydrogenase 708 U/L (333-699) H 05/18/18 03:14 Total Creatine Kinase 137 U/L (35-230) 05/18/18 03:14 Troponin I 0.02 ng/mL D 05/18/18 15:30 NT-Pro-B Natriuret Pep 2520 pg/mL (0-450) H 05/18/18 03:14 Total Protein 8.0 g/dL (5.8-8.3) 05/19/18 05:30 Albumin 4.1 g/dL (3.0-4.8) 05/19/18 05:30 Globulin 3.9 gm/dL 05/19/18 05:30 Albumin/Globulin Ratio 1.0 (1.1-1.8) L 05/19/18 05:30 Triglycerides 66 mg/dL (35-160) 05/19/18 05:30 Cholesterol 214 mg/dL (130-200) H 05/19/18 05:30 LDL Cholesterol Direct 127 mg/dL (0-129) 05/19/18 05:30 HDL Cholesterol 50 mg/dL (29-60) 05/19/18 05:30 Urine Opiates Screen Positive (NEGATIVE) H 05/18/18 18:40 Urine Methadone Screen Negative (NEGATIVE) 05/18/18 18:40 Ur Barbiturates Screen Negative (NEGATIVE) 05/18/18 18:40 Ur Phencyclidine Scrn Negative (NEGATIVE) 05/18/18 18:40 Ur Amphetamines Screen Negative (NEGATIVE) 05/18/18 18:40 U Benzodiazepines Scrn Negative (NEGATIVE) 05/18/18 18:40 U Oth Cocaine Metabols Negative (NEGATIVE) 05/18/18 18:40 U Cannabinoids Screen Positive (NEGATIVE) H 05/18/18 18:40 Hepatitis A IgM Ab Negative (NEGATIVE) 05/18/18 08:45 Hep Bs Antigen Negative (NEGATIVE) 05/18/18 08:45 Hep B Core IgM Ab Negative (NEGATIVE) 05/18/18 08:45 Hepatitis C Antibody Negative (NEGATIVE) 05/18/18 08:45 HIV 1&2 Ag/Ab, 4th Gen Nonreactive (Nonreactive) 05/18/18 08:45 Attending/Attestation - Attestation I have personally seen and examined this patient.: Yes I have fully participated in the care of the patient.: Yes I have reviewed all pertinent clinical information, including history, physical exam and plan: Yes Notes (Text): Please note this DC summary is for 05/19/18 Patient seen and examined by me with resident at approximately 9:40AM and prior to discharge on 05/19/18. Case including discharge plan discussed with resident. Agree with above with following additions/corrections. Patient is a 58-year-old male with past medical history significant for hypertension, hyperlipidemia, coronary artery disease status post stent placement, tobacco abuse, alcohol abuse, and medication noncompliance that presented to the emergency room with chest pain and shortness of breath. Please see H&P for full details. Patient was found to have atypical chest pain, acute systolic CHF, coronary artery disease status post stents, transaminitis, hypertension, hyperlipidemia, alcohol abuse, tobacco abuse, and history of cocaine and marijuana abuse. Chest pain was reproducible. Cardiology was consulted and following. Patient has been noncompliant with medications at home for over 2 years. Patient states he has not taken medications for over 2 years. Patient was placed on aspirin and Plavix and metoprolol. Troponins were 0.02, 0.03, then 0.02. 2D echo per recreational therapist showed left ventricle is normal size, mild left ventricular hypertrophy, systolic function is moderately impaired with an ejection fraction of 30-35%, significant multiple regional wall motion abnormalities noted consistent with coronary artery disease, trivial aortic regurgitation, mitral regurgitation is mild, IVC is dilated, no pericardial effusion, no thrombus or vegetation noted. BNP was elevated at 2520. Patient was placed on IV Lasix. Patient was also found to have uncontrolled hypertension. Patient was started on metoprolol, lisinopril, and Norvasc with improvement. Patient was found to have transaminitis which improved and was likely secondary to alcohol abuse. Hepatitis panel was negative. Patient was also restarted on Lipitor after improvement in transaminitis. Patient was counseled at length on cessation of alcohol abuse. Patient was started on thiamine, folic acid, and multivitamin. Continue tobacco cessation. UDS was positive for opiates and cannabinoids. Patient denied doing any drugs. Patient was advised that his UDS was positive. She was also counseled at length on polysubstance abuse cessation. Patient was also counseled at length on compliance with medications and follow-up with the physician. An appointment was made for patient to establish care with a primary care doctor. Per cardiology, patient will need to have access and be compliant with cardiac medications and will require further outpatient cardiac workup once patient is compliant and is taking his medications. Patient's symptoms resolved. Patient was cleared for discharge by cardiology. Patient was discharged home. On day of discharge, patient stated he was feeling much better. Shortness of breath and chest pain resolved. Patient denied any palpitations. No fevers or chills. No dysuria. No nausea, vomiting, or abdominal pain. No headaches or dizziness. No dysuria. No diarrhea or constipation. Physical exam: General: Awake and alert, lying in bed in no acute distress. HEENT: Normocephalic, atraumatic, Extraocular muscles intact, pupils equal and reactive, no scleral icterus. Oropharynx is pink and moist. Neck is supple. Cardiovascular: Normal rhythm. Normal S1 and S2. No murmurs, rubs, or gallops appreciated. Pulmonary: Normal respiratory effort. No rhonchi, rales, or wheezing appreciated. Gastrointestinal: Soft. Nontender. Nondistended. Positive bowel sounds all 4 quadrants. No guarding. Musculoskeletal: Moves all extremities. No calf tenderness. No edema appreciated. Central nervous system: AAO x 3, CN 2-12 grossly intact. Dermatologic: Skin warm and dry. Please see chart for full details. Follow up instructions: Patient to follow-up at [facility] on 05/28/18 at 2PM. Patient will need outpatient follow-up with cardiology. Patient given prescriptions for all medications and medications delivered to bedside prior to discharge. Patient counseled at length on cessation of any substance abuse. All instructions explained to the patient in detail. Patient both understands and agrees to all instructions. Written instructions also given. Time spent in discharging the patient including chart review, medication reconciliation, discussion with the patient, director global medical affairs, consultants, and nursing staff was approximately 45 minutes.
--- NOTE | 2018-05-19 22:51 | PN ---
DATE: 05/19/2018 SUBJECTIVE: The patient denies any chest pain, except for one time when they wanted to take his weight. No shortness of breath. PHYSICAL EXAMINATION: VITAL SIGNS: Blood pressure 156/84, heart rate 61, temperature 98, and respirations 20. HEENT: Normocephalic. CHEST: Minimal rhonchi. HEART: S1 and S2, regular. EXTREMITIES: No edema. LABORATORY DATA: Urine drug screen is positive for opiates and cannabinoids. Today SMA-7 is within normal limits except for a glucose of 118, potassium 3.4, and creatinine 0.7. ASSESSMENT: 1. Ischemic cardiomyopathy. 2. Opiate and cannabinoid abuse with history of past cocaine abuse. 3. Mild hypokalemia. RECOMMENDATIONS: The case was discussed at length with the patient and with the primary physician, Dr. De León. When cardiac cath and intervention was offered to the patient, the patient stated that he has no way of getting his outpatient medications including dual antiplatelet therapy. The patient was evaluated by Social Service as per my request yesterday, but there is no clear confirmation that he will obtain his free medications. The patient can be maintained on Medical Service for coronary artery disease and cardiomyopathy and be followed in the clinic until his medication requirements are met. The patient will be followed up in the clinic on medical therapy, and at any time the patient is ready for cardiac catheterization, the team can contact me to perform an outpatient cardiac catheterization. In the meantime, the patient was strongly advised to call 911 or present to the emergency room for any recurrence of his chest pain or worsening of his shortness of breath. In the meantime, the patient will be maintained on Lasix, Lipitor, Norvasc, Plavix, Toprol-XL, Vistaril, and K-Dur 20 mEq will be added today. Cordell Adhikari MD
== END 2018-05-19 16:27 | disposition home or self-care (01) ==
LOC: ED 03:08 → INTOOBSV 04:41 → ERH 04:41 → 2RNO 05:46
PROVIDERS: ADMIT Internal Medicine; ATTEND Internal Medicine
DX: I11.0 Hypertensive heart disease with heart failure (principal); I50.21 Acute systolic (congestive) heart failure; I25.5 Ischemic cardiomyopathy; I25.10 Atherosclerotic heart disease of native coronary artery without angina pectoris; E87.6 Hypokalemia; F12.10 Cannabis abuse, uncomplicated; F11.10 Opioid abuse, uncomplicated; F10.10 Alcohol abuse, uncomplicated; F17.200 Nicotine dependence, unspecified, uncomplicated; Z91.14 Patient's other noncompliance with medication regimen; E78.5 Hyperlipidemia, unspecified; Z79.82 Long term (current) use of aspirin; Z95.5 Presence of coronary angioplasty implant and graft; Z79.02 Long term (current) use of antithrombotics/antiplatelets
CPT/HCPCS: 36415; 71045; 80053; 80061; 80074; 82550; 83615; 83735; 83880; 84100; 84484; 85025; 85027; 85610; 85730; 87389; 93005; 93306; 96374; 99285; G0378; G0480; J0360; J1940